=== PATIENT | male | born 1960 | race Caucasian/White ===

== ENCOUNTER 2017-06-30 09:48 | Emergency (ER) | payer OTHER ==
[2017-06-30] MEDS ORDERED: FAMOTIDINE 20MG TAB 20 MG TAB ONE (10:24)
[2017-06-30] MEDS ORDERED: DiphenhydrAMINE HCL 50 MG/ML VIAL ONE (10:24)
[2017-06-30] MEDS ORDERED: DEXAMETHASONE SOD PHOSPHATE 10MG/ML 1ML VIAL ONE (10:24)
[2017-06-30 11:41] LABS: CREATININE 1.1 mg/dL (0.5-1.5); POTASSIUM 3.8 mmol/L (3.5-5.1)
== END 2017-06-30 12:00 | disposition home or self-care (01) ==
LOC: EDH 09:48
DX: T78.49XA Other allergy, initial encounter (principal); R03.0 Elevated blood-pressure reading, without diagnosis of hypertension; Z88.2 Allergy status to sulfonamides; W57.XXXA Bitten or stung by nonvenomous insect and other nonvenomous arthropods, initial encounter
CPT/HCPCS: 36415; 80048; 96372 ×2; 99284; J1200; J1100